=== PATIENT | male | born 1950 | race Caucasian/White ===

== ENCOUNTER 2019-05-24 21:11 | Emergency (ER) | payer BC, OTHER ==
[2019-05-24] MEDS ORDERED: Proparacaine 0.5% Ophth Soln 15 ML Bottle ONE (21:18)
[2019-05-24 21:23] VITALS: BP 154/65; PULSE 74
[2019-05-24] MEDS ORDERED: Proparacaine 0.5% Ophth Soln 15 ML Bottle EYERT ONE (21:23)
--- NOTE | 2019-05-24 21:48 | EDM.PDOC ---
ED HPI GENERAL MEDICAL PROBLEM - General Chief Complaint: Eye Problems Stated Complaint: CHEMICAL IN RIGHT EYE Time Seen by Provider: 05/24/19 21:33 Source of Information: Reports: Patient History Limitations: Reports: No Limitations - History of Present Illness INITIAL COMMENTS - FREE TEXT/NARRATIVE: 68-year-old male reports that he was reaching up on a shelf to get down some driller brake lining fluid at [facility] when the can tipped over and the lid was open. This caused driller brake lining fluid to spill onto his right jaxson-face and into his right eye and soaked his shirt and undershirt on the right side. Of note the patient does wear eyeglasses but the fluid spilled from above onto his forehead and right eye. Within 10 minutes Associates at the store help wash out his eye and he scrubbed his face well with soap and water. He still feels like there is a frostbite or coolness to the right side of his face. He is able to keep his eye open at this time to perform eye testing. The eye itself is not that red or irritated. We did take off his clothing as he still smells of driller brake lining fluid to make sure that it did not soak into his skin and act as an irritant. [employer] fluid was similar to a petrochemical like gasoline and will D nature protein and dehydrate the tissues including the cornea. The plan will be to irrigate his eye after 2 drops of proparacaine are placed with a liter of normal saline. I will then reinspect his eye with slit lamp exam Onset: Today Onset Date: 05/24/19 Onset Time: 20:45 Duration: Minutes: Location: Reports: Face (Fluid splashed across his forehead right jaxson-face and into his right eye accidentally. Also soaked his clothing his shirt and T-shirt ) Quality: Reports: Burning, Sharp, Stabbing Severity: Moderate (Since I irrigation) Improves with: Reports: Other (Better after irrigation but still feels a burning sensation) Worsens with: Reports: None Context: Reports: Other (Accidental spillage of driller brake lining fluid into his right eye and jaxson-face when he was reaching for a bottle on a shelf and it tipped over and the lid was open spilling driller brake lining fluid onto his face including his right eye this occurred at local [employer] store). Denies: Activity, Exercise, Lifting, Sick Contact, Trauma Associated Symptoms: Reports: Other (Burning sensation and coolness sensation to the right jaxson-face some much to his anterior chest or shoulder.) Treatments STOCK AND STATION AGENT: Reports: Other (see below) Right Eye Pain Score (Numeric/FACES): 8 - Related Data Allergies Allergy/AdvReac Type Severity Reaction Status Date / Time No Known Allergies Allergy Verified 12/31/15 12:15 Home Meds: Home Meds Aspirin [[place] Aspirin EC] 81 mg PO DAILY 12/31/15 [History] Clopidogrel [Plavix] 75 mg PO DAILY 12/31/15 [History] Finasteride [Proscar] 5 mg PO DAILY 12/31/15 [History] Nitroglycerin [Nitrostat] 0.4 mg SL Q5M PRN 12/31/15 [History] Sertraline [Zoloft] 50 mg PO DAILY 12/31/15 [History] Sulfamethoxazole/Trimethoprim [Bactrim Ds Tablet] 1 tab PO Q12H #14 tablet 12/30 [Rx] Tamsulosin [Flomax] 0.4 mg PO BID 12/31/15 [History] atorvaSTATin [Lipitor] 80 mg PO DAILY 12/31/15 [History] Past Medical History Cardiovascular History: Reports: CAD, High Cholesterol, [place] Genitourinary History: Reports: BPH Psychiatric History: Reports: Depression - Past Surgical History HEENT Surgical History: Reports: Tonsillectomy Cardiovascular Surgical History: Reports: Coronary Artery Stent GI Surgical History: Reports: Cholecystectomy Male Surgical History: Reports: TURBT-Transurethral Resection of Bladder Tumor Neurological Surgical History: Reports: C-Spine Social & Family History - Tobacco Use Smoking Status *Q: Current Every Day Smoker Years of Tobacco use: 43 Packs/Tins Daily: 1 - Caffeine Use Caffeine Use: Reports: Coffee, Soda, Tea - Recreational Drug Use Recreational Drug Use: No - Living Situation & Occupation Living situation: Reports: , with Spouse Occupation: Employed ED ROS GENERAL - Review of Systems Review Of Systems: See Below Constitutional: Denies: Fever, Chills, Malaise, Weakness, Fatigue, Decreased Appetite, Weight Loss HEENT: Reports: Eye Pain (Pain right eye.) Respiratory: Reports: No Symptoms Cardiovascular: Reports: No Symptoms Endocrine: Reports: No Symptoms GI/Abdominal: Reports: No Symptoms : Reports: Frequency, Other (Nocturia x2 or 3) Musculoskeletal: Reports: Back Pain, Joint Pain ( days no problems with back pain knees and hips at times) Skin: Reports: Other Neurological: Reports: No Symptoms (Slight burning cool sensation to the right side of his face.) Psychiatric: Reports: No Symptoms Hematologic/Lymphatic: Reports: No Symptoms ED EXAM GENERAL W FULL EYE - Physical Exam Exam: See Below Exam Limited By: No Limitations General Appearance: Alert, WD/WN, Anxious, Mild Distress, Other (Keep his right elbow open without blinking indicating very little injury to the cornea has occurred.) Eye Exam: Right Eye: Conjunctival Injection (Very mild.), Bilateral Eye: Normal Inspection Eyelids: Bilateral: Normal Appearance Conjunctiva & Sclera: Right: Injected (Mildly on the right side) Cornea Exam: Bilateral: Normal Appearance (Normal appearance to both corneas on slit-lamp exam.) Extraocular Movements: Bilateral: Intact Pupillary Size: Bilateral: 6 mm Pupillary Reaction: Bilateral: Brisk Anterior Chamber: Bilateral: Normal Appearance Posterior Chamber: Bilateral: Normal Funduscopic Ears: Normal TMs Throat/Mouth: Normal Inspection, Normal Lips, Normal Oropharynx, Other (She believes some of the driller brake lining fluid did splash into his mouth. He can still taste a bit but has no burning in his oral cavity.) Head: Atraumatic, Normocephalic, Other (Feels a numbness and coolness sensation to the right jaxson-face but the tissue itself is intact without any erythema or blistering.) Neck: Normal Inspection, Supple, Non-Tender, Full Range of Motion. No: Lymphadenopathy (L), Lymphadenopathy (R) Respiratory/Chest: No Respiratory Distress, Lungs Clear, Normal Breath Sounds, No Accessory Muscle Use ED EYE w/ Add Procedure - Eye Procedure Alcaine Drops Administered: Yes Eye Irrigated w/ Saline (ccs): 1,000 Course - Vital Signs Last Recorded V/S: Last Vital Signs Temp 36.5 C 05/24/19 21:22 Pulse 74 05/24/19 21:22 Resp 20 05/24/19 21:22 BP 154/65 H 05/24/19 21:22 Pulse Ox 96 05/24/19 21:22 - Orders/Labs/Meds Orders: Active Orders 24 hr Category Date Time Status Eye Irrigation [RC] ASDIRECTED Care 05/24/19 21:57 Active Meds: Medications Discontinued Medications Generic Name Dose Route Start Last Admin Trade Name Hank PRDarien Reason Stop Dose Admin Acetaminophen 975 mg 05/24/19 22:12 Tylenol PO 05/24/19 22:13 NOW ONE Sodium Chloride Confirm 05/24/19 22:02 Normal Saline Administered 05/24/19 22:03 Dose 1,000 mls @ as directed .ROUTE .STK-MED ONE Proparacaine HCl Confirm 05/24/19 21:18 Proparacaine 0.5% Ophth Soln Administered 05/24/19 21:19 Dose 15 ml .ROUTE .STK-MED ONE Proparacaine HCl 2 ml 05/24/19 21:23 05/24/19 21:29 Proparacaine 0.5% Ophth Soln EYERT 05/24/19 21:24 2 drop ONETIME ONE Administration - Radiology Interpretation Free Text/Narrative:: T8-year-old male presents to the ED for accidentally spilling driller brake lining fluid into his right eye and right jaxson-face and onto his clothing of his right upper anterior chest and shoulder. This occurred accidentally when he was reaching for a can of driller brake lining fluid at [employer] and it tipped over and the lid was open spilling the liquid into his face. He did have his eye washed out within 10 minutes of the occurrence in [employer] store and then was brought to the ED for further evaluation. At this time he is showing very little damage to the right cornea and it feels better after 2 drops of Alcaine were placed. He was able to participate in the visual field assessment and reading the Snellen eye chart. Will be to irrigate the eye with a full liter of normal saline and then I will review his eye with slit lamp. - Re-Assessments/Exams Free Text/Narrative Re-Assessment/Exam: 05/24/19 22:13 and is still undergoing eye irrigation with a Fabrizio lens. He can still taste driller brake lining fluid in the back of his mouth and is requesting some gum which I was able to find. Given Tylenol 9 7 5 mg by mouth for headache relief. 05/24/19 22:30: Has been thoroughly irrigated with a full liter of normal saline. I was then able to look at the eye with slit lamp examination and other than increased vascularity to the conjunctiva due to a chemical to conjunctivitis there was no apparent injury to the cornea. The anterior chamber is completely normal and there are no corneal abrasions or ulcerations. Patient feels improved. Advised placement of artificial tears for the next couple of days to keep the right eye moistened but no permanent damage is going to occur to the eye. He will go home and shower and wash off the driller brake lining fluid from his clothing on his anterior shoulder and chest. Departure - Departure Time of Disposition: 22:39 Disposition: Home, Self-Care 01 Condition: Fair Clinical Impression: Chemical conjunctivitis of right eye Contact dermatitis Qualifiers: Contact dermatitis type: irritant Contact dermatitis trigger: solvent Qualified Code(s): L24.2 - Irritant contact dermatitis due to solvents - Discharge Information *PRESCRIPTION DRUG MONITORING PROGRAM REVIEWED*: Not Applicable *COPY OF PRESCRIPTION DRUG MONITORING REPORT IN PATIENT ANGI: Not Applicable Instructions: Chemical Conjunctivitis, Adult, Contact Dermatitis, [id number] Referrals: Villa Brandon MD [Primary Care Provider] - Forms: ED Department Discharge Additional Instructions: Evaluation in the emergency room tonight in regards to driller brake lining fluid ending spilled into your right eye as well as into your mouth nose and along the right side of your face neck and likely anterior shoulder and chest wall. The driller brake lining fluid is like gasoline and it is a irritant to the skin and of course to the eye as well. The eye was irrigated with a liter of normal saline to dilute any chemical in the eye. Inspection of the eye with slit lamp magnification does not reveal any damage to the cornea or other structures of the eye. Of note the eye will feel quite dry and irritated for a couple of days. Suggest purchasing some [id number] lubricant eyedrops such as artificial tears or tears on natural rale and using 2 drops to the eye every 4- 6 hours as needed for the next couple of days. Shower when you get home with soap and water to wash any of the driller brake lining fluid off of your skin. Permanent damage will occur to the eye. Sepsis Event Note - Evaluation Sepsis Screening Result: No Definite Risk - Focused Exam Vital Signs: Vital Signs Temp Pulse Resp BP Pulse Ox 05/24/19 21:22 36.5 C 74 20 154/65 H 96 Date Exam was Performed: 05/24/19 Time Exam was Performed: 22:40 - My Orders Last 24 Hours: My Active Orders 05/24/19 21:57 Eye Irrigation [RC] ASDIRECTED - Assessment/Plan Last 24 Hours: My Active Orders 05/24/19 21:57 Eye Irrigation [RC] ASDIRECTED
[2019-05-24] MEDS ORDERED: Sodium Chloride 0.9% 1,000 ML ONE (22:02)
[2019-05-24] MEDS ORDERED: Acetaminophen 325 MG Tab PO ONE (22:12)
== END 2019-05-24 22:43 | disposition home or self-care (01) ==
LOC: JD.ED 21:11
DX: H10.211 Acute toxic conjunctivitis, right eye (principal); L24.2 Irritant contact dermatitis due to solvents; F32.9 Major depressive disorder, single episode, unspecified; I25.10 Atherosclerotic heart disease of native coronary artery without angina pectoris; E78.00 Pure hypercholesterolemia, unspecified; I25.2 Old myocardial infarction; F17.210 Nicotine dependence, cigarettes, uncomplicated; Z79.02 Long term (current) use of antithrombotics/antiplatelets; Z79.899 Other long term (current) drug therapy; Z79.82 Long term (current) use of aspirin
CPT/HCPCS: 99283; J7030

== ENCOUNTER 2020-03-25 16:16 | Emergency (ER) | payer OTHER ==
[2020-03-25] MEDS ORDERED: Diphtheria,Pertussis(Acell),Tetanus Vaccine 0.5 ML Syringe IM ONE (16:24)
[2020-03-25] MEDS ORDERED: Sodium Chloride 0.9% 10 ML Syringe FLUSH PRN (16:24)
[2020-03-25] MEDS ORDERED: ceFAZolin 2 GM in Premix Bag 1 BAG IV ONE (16:25)
[2020-03-25] MEDS ORDERED: Lidocaine 1% 20 ML MDV INJECT ONE (16:25)
[2020-03-25] MEDS ORDERED: HYDROmorphone 1 MG/ML Syringe IVPUSH ONE ×2 (16:25→17:38)
[2020-03-25] MEDS ORDERED: Lidocaine 1% 10 ML MDV ONE (16:36)
--- NOTE | 2020-03-25 16:59 | EDM.PDOC ---
ED HPI GENERAL MEDICAL PROBLEM - General Chief Complaint: Upper Extremity Injury/Pain Stated Complaint: L FINGER LAC Time Seen by Provider: 03/25/20 16:19 Source of Information: Reports: Patient History Limitations: Reports: No Limitations - History of Present Illness INITIAL COMMENTS - FREE TEXT/NARRATIVE: The patient presents with a laceration to his left ring finger and little finger. He was cutting some wood with a table saw and reached over the guard and the blade cut his left ring finger through the PIP joint. He is stuck in a flexed position at that joint. He has some numbness to the finger. There is a large laceration over that joint. He is right handed and he is not sure of his tetanus status. He has no other injuries. He last ate a donut in the morning and had some water around noon. He is on plavix and aspirin. Onset: Sudden Duration: Minutes: Location: Reports: Upper Extremity, Left (hand) Quality: Reports: Sharp Severity: Severe Improves with: Reports: None Worsens with: Reports: None Associated Symptoms: Reports: No Other Symptoms left hand Pain Score (Numeric/FACES): 8 - Related Data Allergies Allergy/AdvReac Type Severity Reaction Status Date / Time No Known Allergies Allergy Verified 03/25/20 16:27 Home Meds: Home Meds Aspirin [[place] Aspirin EC] 81 mg PO DAILY 12/31/15 [History] Clopidogrel [Plavix] 75 mg PO DAILY 12/31/15 [History] Finasteride [Proscar] 5 mg PO DAILY 12/31/15 [History] Nitroglycerin [Nitrostat] 0.4 mg SL Q5M PRN 12/31/15 [History] Sertraline [Zoloft] 50 mg PO DAILY 12/31/15 [History] Sulfamethoxazole/Trimethoprim [Bactrim Ds Tablet] 1 tab PO Q12H #14 tablet 12/31/15 [Rx] Tamsulosin [Flomax] 0.4 mg PO BID 12/31/15 [History] atorvaSTATin [Lipitor] 80 mg PO DAILY 12/31/15 [History] Past Medical History Cardiovascular History: Reports: CAD, High Cholesterol, [place] Genitourinary History: Reports: BPH Psychiatric History: Reports: Depression - Past Surgical History HEENT Surgical History: Reports: Tonsillectomy Cardiovascular Surgical History: Reports: Coronary Artery Stent GI Surgical History: Reports: Cholecystectomy Male Surgical History: Reports: TURBT-Transurethral Resection of Bladder Tumor Neurological Surgical History: Reports: C-Spine Social & Family History - Tobacco Use Tobacco Use Status *Q: Current Every Day Tobacco User Years of Tobacco use: 50 Packs/Tins Daily: 0.2 - Caffeine Use Caffeine Use: Reports: Coffee, Soda, Tea - Recreational Drug Use Recreational Drug Use: No - Living Situation & Occupation Living situation: Reports: , with Spouse Occupation: Employed Review of Systems - Review of Systems Review Of Systems: See Below Constitutional: Reports: No Symptoms Eyes: Reports: No Symptoms Ears: Reports: No Symptoms Nose: Reports: No Symptoms Mouth/Throat: Reports: No Symptoms Respiratory: Reports: No Symptoms Cardiovascular: Reports: No Symptoms GI/Abdominal: Reports: No Symptoms Genitourinary: Reports: No Symptoms Musculoskeletal: Reports: Other (Left hand laceration) ED EXAM, GENERAL - Physical Exam Exam: See Below Exam Limited By: No Limitations General Appearance: Alert, No Apparent Distress Ears: Normal External Exam Nose: Normal Inspection Head: Atraumatic, Normocephalic Neck: Normal Inspection Respiratory/Chest: No Respiratory Distress Extremities: Other (Laceration through the dorsal aspect of the PIP joint of the 4th finger. It is stuck in the flexed positon. He has decreased sensation to the finger. He also has a superficial laceration to the 5th digit with good sensation and capillary refill.) Course - Vital Signs Last Recorded V/S: Last Vital Signs Temp 96.5 F L 03/25/20 16:21 Pulse 88 03/25/20 16:21 Resp 20 03/25/20 16:21 BP 134/98 H 03/25/20 16:21 Pulse Ox 98 03/25/20 16:21 - Orders/Labs/Meds Orders: Active Orders 24 hr Category Date Time Status Peripheral IV Care [RC] . DIRECTED Care 03/25/20 16:24 Active Vaccines to be Administered [RC] PER UNIT ROUTINE Care 03/25/20 16:24 Active Sodium Chloride 0.9% [Saline Flush] Med 03/25/20 16:24 Active 10 ml FLUSH ASDIRECTED PRN Peripheral IV Insertion Adult [OM.PC] Routine Oth 03/25/20 16:24 Ordered Medication Orders Sodium Chloride (Saline Flush) 10 ml FLUSH ASDIRECTED PRN PRN Reason: Keep Vein Open Last Admin: 03/25/20 16:43 Dose: 10 ml Documented by: SOURAV Meds: Medications Generic Name Dose Route Start Last Admin Trade Name Frearmin PRN Reason Stop Dose Admin Sodium Chloride 10 ml 03/25/20 16:24 03/25/20 16:43 Saline Flush FLUSH 10 ml ASDIRECTED PRN Administration Keep Vein Open Discontinued Medications Generic Name Dose Route Start Last Admin Trade Name Freq PRN Reason Stop Dose Admin Diphtheria/Tetanus/Acell Pertussis 0.5 ml 03/25/20 16:24 03/25/20 16:46 Boostrix IM 03/25/20 16:25 0.5 ml .ONCE ONE Administration Hydromorphone HCl 1 mg 03/25/20 16:25 03/25/20 16:41 Dilaudid IVPUSH 03/25/20 16:26 1 mg ONETIME ONE Administration Cefazolin Sodium/Dextrose 2 gm 50 mls @ 100 mls/hr 03/25/20 16:25 03/25/20 16:41 / Premix IV 03/25/20 16:54 100 mls/hr ONETIME ONE Administration Lidocaine HCl 20 ml 03/25/20 16:25 03/25/20 16:43 Xylocaine 1% INJECT 03/25/20 16:26 Not Given ONETIME ONE Lidocaine HCl Confirm 03/25/20 16:36 03/25/20 16:43 Xylocaine 1% Administered 03/25/20 16:37 Not Given Dose 20 ml .ROUTE .[facility] [place]-MED ONE - Re-Assessments/Exams Free Text/Narrative Re-Assessment/Exam: 03/25/20 17:12 I ordered an IV saline lock, ancef 2 grams IV, tetanus, and an x-ray of his left hand. The x-ray shows the 4th finger in a flexed position at the PIP joint and some bone is missing from the middle phalynx. I called [facility] and Dr Perez the hand surgeon is on. He is scrubbed into a case and he will call me back. 03/25/20 17:38 Dr Perez called me back and he feels he may have to amputate. He would like the patient there right away so he can do the surgery. Departure - Departure Time of Disposition: 17:40 Disposition: Home, Self-Care 01 Condition: Good Clinical Impression: Laceration of left ring finger Qualifiers: Encounter type: initial encounter Damage to nail status: with damage Foreign body presence: without foreign body Qualified Code(s): S61.315A - Laceration without foreign body of left ring finger with damage to nail, initial encounter Extensor tendon laceration, finger, open wound Qualifiers: Encounter type: initial encounter Qualified Code(s): S56.429A - Laceration of extensor muscle, fascia and tendon of unspecified finger at forearm level, initial encounter; S61.209A - Unspecified open wound of unspecified finger without damage to nail, initial encounter Open fracture of phalanx of left ring finger Qualifiers: Encounter type: initial encounter Phalanx: middle Fracture alignment: nondisplaced Qualified Code(s): S62.655B - Nondisplaced fracture of middle phalanx of left ring finger, initial encounter for open fracture - Discharge Information *PRESCRIPTION DRUG MONITORING PROGRAM REVIEWED*: Not Applicable *COPY OF PRESCRIPTION DRUG MONITORING REPORT IN PATIENT ANGI: Not Applicable Referrals: Villa Brandon MD [Primary Care Provider] - Forms: ED Department Discharge Additional Instructions: Go directly to [facility] in [place]. Do not eat or drink on the way. Sepsis Event Note (ED) - Evaluation Sepsis Screening Result: No Definite Risk - Focused Exam Vital Signs: Vital Signs Temp Pulse Resp BP Pulse Ox 03/25/20 16:21 96.5 F L 88 20 134/98 H 98 - My Orders Last 24 Hours: My Active Orders 03/25/20 16:24 Peripheral IV Care [RC] . DIRECTED Vaccines to be Administered [RC] PER UNIT ROUTINE Sodium Chloride 0.9% [Saline Flush] 10 ml FLUSH ASDIRECTED PRN Peripheral IV Insertion Adult [OM.PC] Routine - Assessment/Plan Last 24 Hours: My Active Orders 03/25/20 16:24 Peripheral IV Care [RC] . DIRECTED Vaccines to be Administered [RC] PER UNIT ROUTINE Sodium Chloride 0.9% [Saline Flush] 10 ml FLUSH ASDIRECTED PRN Peripheral IV Insertion Adult [OM.PC] Routine
--- NOTE | 2020-03-25 17:14 | CR ---
Hand: 3 views of the left hand were obtained. Comparison: No prior hand study. Acute angulation close to the PIP joint of the fourth digit is seen. Fracture is present within the base of the middle phalanx. Small radiopacity is noted next to the second metacarpal head which appears to be old. No additional bony abnormality is appreciated. Impression: 1. Acute angulation with fracture involving the base of the middle phalanx of the left fourth finger. 2. Small radiopacity next to the second metacarpal which is likely old. 3. No additional abnormality is appreciated. Diagnostic code #3
[2020-03-25] MEDS ORDERED: HYDROmorphone 1 MG/ML Syringe ONE (17:36)
[2020-03-25 17:46] VITALS: BP 146/71; PULSE 77
== END 2020-03-25 17:55 | disposition home or self-care (01) ==
LOC: JD.ED 16:16
DX: S62.655B Nondisplaced fracture of middle phalanx of left ring finger, initial encounter for open fracture (principal); S56.426A Laceration of extensor muscle, fascia and tendon of left ring finger at forearm level, initial encounter; S61.217A Laceration without foreign body of left little finger without damage to nail, initial encounter; I25.10 Atherosclerotic heart disease of native coronary artery without angina pectoris; E78.00 Pure hypercholesterolemia, unspecified; I25.2 Old myocardial infarction; N40.0 Benign prostatic hyperplasia without lower urinary tract symptoms; F32.9 Major depressive disorder, single episode, unspecified; F17.210 Nicotine dependence, cigarettes, uncomplicated; Z23 Encounter for immunization; Z79.82 Long term (current) use of aspirin; Z79.02 Long term (current) use of antithrombotics/antiplatelets; Z79.899 Other long term (current) drug therapy; W27.0XXA Contact with workbench tool, initial encounter
CPT/HCPCS: 73130; 90471; 90715; 96365; 96375; 96376; 99284; J0690; J1170

== ENCOUNTER 2023-11-30 14:38 | Emergency (ER) | payer MEDICARE ==
[2023-11-30] MEDS ORDERED: Ketorolac 15 MG/ML SDV IVPUSH ONE (15:47)
[2023-11-30] MEDS ORDERED: ceFAZolin 2 GM in Sodium Chloride 0.9% 50 ML IV ONE (15:48)
[2023-11-30] MEDS: ceFAZolin 1 GM Vial IM ONE (17:08)
[2023-11-30] MEDS: Ketorolac 30 MG/ML SDV IM ONE (17:09)
[2023-11-30] MEDS: Lidocaine 1% 20 ML MDV INJECT ONE (17:09)
[2023-11-30 18:06] VITALS: BP 153/80; PULSE 73
== END 2023-11-30 17:38 | disposition home or self-care (01) ==
LOC: JD.ED 14:38
DX: S51.811A Laceration without foreign body of right forearm, initial encounter (principal); I10 Essential (primary) hypertension; Z95.5 Presence of coronary angioplasty implant and graft; Z90.49 Acquired absence of other specified parts of digestive tract; F17.210 Nicotine dependence, cigarettes, uncomplicated; Z79.82 Long term (current) use of aspirin; Z79.899 Other long term (current) drug therapy
CPT/HCPCS: 12002; 73090-26-RT; 73090-RT; 96372; 99283; J0690; J1885; J3490